=== PATIENT | female | born 1975 | race African-American/Black ===

== ENCOUNTER 2024-07-18 13:42 | Emergency (ER) | payer OTHER ==
[~2024-07-18] VITALS: Ht 172.7 cm; Wt 75.0 kg
[2024-07-18 13:48] VITALS: O2SAT 99
[2024-07-18] MEDS ORDERED: AMOX500T2 MT (14:53)
[2024-07-18] MEDS: KETOROLAC 15MG/ML VIAL IM ONE (15:46)
[2024-07-18 15:53] VITALS: BP 144/87; PULSE 79; RESP 17; TEMP 36.78072; O2SAT 99
== END 2024-07-18 16:08 | disposition home or self-care (01) ==
LOC: ER 13:42
DX: M27.69 Other endosseous dental implant failure (principal); I10 Essential (primary) hypertension
CPT/HCPCS: 99283; 81025; 96372; J1885